=== PATIENT | female | born 1985 | race Caucasian/White ===

== ENCOUNTER 2018-04-07 02:02 | Emergency (ER) | payer OTHER ==
--- NOTE | 2018-04-07 02:05 | PDOC ---
History of Present Illness - General Chief Complaint: Respiratory Stated Complaint: ALLERGIES Time Seen by Provider: 04/07/18 02:04 - History of Present Illness Initial Comments: This otherwise healthy 32-year-old woman presents with nasal congestion and nonproductive cough for the last 2-3 days, becoming more severe tonight. Patient has a long history of seasonal ALLERGIES. She had been outside for a protracted period today believes that her symptoms are related to her ALLERGIC response. Over the last several hours she has taken if a few doses of Benadryl without relief. She has not had any fever/chills or known exposure to people with febrile illness. This been no recent travel. Patient has appointment scheduled with her ENT doctor on April 17 No history of asthma or other chronic respiratory illness Past History - Past Medical History Allergies/Adverse Reactions: Allergies Allergy/AdvReac Type Severity Reaction Status Date / Time No Known Allergies Allergy Unverified 04/07/18 02:04 Home Medications: Ambulatory Orders Fluticasone Prop 0.05% Nasal [Flonase -] 1 - 2 spray NS BID #1 spray.pump Prednisone [Deltasone] 40 mg PO DAILY #8 tablet 04/07/18 Review of Systems - Review of Systems Able to Perform ROS?: Yes Comments:: 12 point review of systems is negative except for what is noted in the history of present illness *Physical Exam - Physical Exam Comments: GENERAL: Adult female, alert and oriented 3, frequent nonproductive cough but in no acute respiratory distress HEAD: Normal with no signs of trauma. EYES: PERRLA, EOMI, sclera anicteric, conjunctiva clear. ENT: Ears normal, nares patent, oropharynx clear without exudates. Dry mucous membranes. No evidence of masses or edema NECK: Normal range of motion, supple without lymphadenopathy, JVD, or masses. No stridor LUNGS: Breath sounds equal, clear to auscultation bilaterally. No wheezes, and no crackles. HEART:Regular rate and rhythm, normal S1 and S2 without murmur, rub or gallop. ABDOMEN:.normal bowel sounds No guarding,tenderness or rebound.No masses No distention. EXTREMITIES: Normal range of motion, no edema. No clubbing or cyanosis. No erythema, or tenderness. NEUROLOGICAL: Cranial nerves II through XII grossly intact. Normal speech. No focal neurological deficits. MUSCULOSKELETAL: Back non-tender to palpation, no CVA tenderness SKIN: Warm, Dry, normal turgor, no rashes or lesions noted. *DC/Admit/Observation/Transfer Diagnosis at time of Disposition: Allergic bronchitis Qualifiers: Asthma severity: unspecified severity Asthma complication type: uncomplicated Qualified Code(s): J45.909 - Unspecified asthma, uncomplicated - Discharge Dispostion Disposition: HOME Condition at time of disposition: Stable - Prescriptions Prescriptions: Fluticasone Prop 0.05% Nasal [Flonase -] 1 - 2 spray NS BID #1 spray.pump Prednisone [Deltasone] 40 mg PO DAILY #8 tablet - Referrals - Patient Instructions Printed Discharge Instructions: Allergic Rhinitis Additional Instructions: Prednisone 40 mg daily for the next 4 days (take with food) After prednisone course finished, use Flonase twice a day Avoid prolonged exposure to outside allergens (pollen) Avoid smoking Return to ER if you have difficulty breathing/wheezing/shortness of breath Follow-up with ENT on April 17 as previously arranged - Post Discharge Activity
[2018-04-07 02:10] VITALS: BP 121/90; PULSE 70; TEMP 98.6; BMI 22.1
[2018-04-07] MEDS ORDERED: predniSONE 20 MG TABLET (UD) PO ONE (02:22)
[2018-04-07] MEDS ORDERED: predniSONE 20 MG TABLET (UD) ONE (02:31)
== END 2018-04-07 02:35 | disposition home or self-care (01) ==
LOC: FER 02:02
DX: J45.909 Unspecified asthma, uncomplicated (principal)
CPT/HCPCS: 99281-25